=== PATIENT | male | born 1955 | race African-American/Black ===

== ENCOUNTER 2022-06-06 17:55 | Inpatient (IN) ==
[2022-06-06 19:23] LABS: Basophils % 0.6 % (0.0-0.8); Eosinophils # 0.3 10*3/uL (0.0-0.87); Eosinophils % 5.8 % (0.00-10.9); Hematocrit 38.6 VOL% (42.0-52.0); Hemoglobin 12.1 GM/DL (14.0-18.0); Immature Granulocytes % 0.4 %; Immature Granulocytes Absolute 0.02 #; Lymphocytes % 20.2 % (21.2-54.2); Mean Corpuscular HGB Conc 31.3 GM/DL (32-36); Mean Corpuscular Volume 80.9 FL (87-102); Monocytes # 0.5 10*3/uL (0.11-0.8); Monocytes % 9.7 % (1.7-12.7); Neutrophils % 63.3 % (38.7-73.9); Platelet Count 171 T/CUMM (130-400); Red Blood Count 4.77 MC/CUMM (3.8-5.5); Red Cell Distribution Width 19.3 % (9.3-17.3); White Blood Count 4.8 T/CUMM (4-12)
[2022-06-06 19:31] LABS: INR 1.2; PT Patient Result 12.9 SECS (10.1-12.1); Partial Thromboplastin Time 30.2 SECS (23.7-32.9)
[2022-06-06 19:42] LABS: Calcium 8.7 MG/DL (8.5-10.1); Potassium 3.3 MMOL/L (3.5-5.1)
[2022-06-06] MEDS ORDERED: ENOXAPARIN 100 MG/ML SYRINGE SUBCUT STA (20:37)
[2022-06-06] MEDS ORDERED: ACETAMINOPHEN 325 MG TABLET PO PRN (20:52)
[2022-06-06] MEDS ORDERED: POTASSIUM CHLORIDE RIDER 10 MEQ/100 ML PREMIX IV PRN (20:52)
[2022-06-06] MEDS ORDERED: POTASSIUM CHLORIDE 20 MEQ TABLET PO PRN (20:52)
[2022-06-06] MEDS ORDERED: ONDANSETRON 4 MG/2 ML VIAL IV PRN (20:52)
[2022-06-06] MEDS ORDERED: GLUCAGON 1 MG VIAL IM PRN (20:52)
[2022-06-06] MEDS ORDERED: DEXTROSE 10% 250 ML BAG IV PRN (20:52)
[2022-06-06] MEDS ORDERED: MAGNESIUM SULF RIDER 2 GM/50 ML PREMIX IV PRN (20:52)
[2022-06-06] MEDS ORDERED: MAGNESIUM SULF RIDER 4 GM/100 ML PREMIX IV PRN (20:52)
[2022-06-06] MEDS ORDERED: POTASSIUM CHLORIDE 20 MEQ TABLET PO STA (21:24)
[2022-06-06] MEDS ORDERED: hydrALAZINE 20 MG/1 ML VIAL IV PRN (21:24)
[2022-06-06] MEDS ORDERED: carvediloL 3.125 MG TABLET PO SCH (22:00)
[2022-06-06] MEDS: DOCUSATE SODIUM 100 MG CAPSULE PO SCH (22:45)
[2022-06-07 02:15] LABS: Basophils % 0.6 % (0.0-0.8); Eosinophils # 0.3 10*3/uL (0.0-0.87); Eosinophils % 5.7 % (0.00-10.9); Hematocrit 37.6 VOL% (42.0-52.0); Hemoglobin 11.9 GM/DL (14.0-18.0); Immature Granulocytes % 0.6 %; Immature Granulocytes Absolute 0.03 #; Lymphocytes # 0.9 10*3/uL (1.4-4.0); Mean Corpuscular HGB Conc 31.6 GM/DL (32-36); Mean Corpuscular Volume 80.7 FL (87-102); Monocytes # 0.5 10*3/uL (0.11-0.8); Monocytes % 9.2 % (1.7-12.7); Neutrophils % 65.9 % (38.7-73.9); Platelet Count 169 T/CUMM (130-400); Red Blood Count 4.66 MC/CUMM (3.8-5.5); Red Cell Distribution Width 19.7 % (9.3-17.3); White Blood Count 5.1 T/CUMM (4-12)
[2022-06-07 02:20] LABS: INR 1.5; PT Patient Result 15.7 SECS (10.1-12.1)
[2022-06-07 02:34] LABS: Ferritin 30.8 ng/mL (26-388); Risk Ratio 3.17; Thyroid Stimulating Hormone 3.73 uIU/ml (0.358-3.74); VLDL Cholesterol 11.8 MG/DL
[2022-06-07 03:20] LABS: Vitamin B12 1502 PG/ML (211-911)
[2022-06-07 03:32] LABS: Sedimentation Rate-Westergren 5 MM/HR (0-20)
[2022-06-07] MEDS ORDERED: MAGNESIUM SULF RIDER 2 GM/50 ML PREMIX IV ONE (08:15)
[2022-06-07] MEDS ORDERED: amLODIPine 5 MG TABLET PO SCH (09:00)
[2022-06-07] MEDS ORDERED: CHLORTHALIDONE 25 MG TABLET PO SCH (09:00)
[2022-06-07] MEDS ORDERED: ENOXAPARIN 80 MG/0.8 ML SYRINGE SUBCUT SCH (09:00)
[2022-06-07 09:04] LABS: Calcium 8.6 MG/DL (8.5-10.1); Osmolality,Calculated 290.8 MOS/KG (273-304); Potassium 3.7 MMOL/L (3.5-5.1)
[2022-06-07 09:33] LABS: Hemoglobin A1 (Alkaline) 98.1 % (96.5-98.5); Hemoglobin A2 (Alkaline) 1.9 % (1.5-3.5)
[2022-06-07] MEDS: FUROSEMIDE 40 MG/4 ML VIAL IV SCH ×2 (09:33→16:18)
[2022-06-07] MEDS: PANTOPRAZOLE 40 MG TABLET PO SCH (09:33)
[2022-06-07] MEDS: DOCUSATE SODIUM 100 MG CAPSULE PO SCH ×2 (09:33→20:17)
[2022-06-07] MEDS: SPIRONOLACTONE 25 MG TABLET PO SCH (12:29)
[2022-06-07] MEDS: carvediloL 6.25 MG TABLET PO SCH (20:17)
[2022-06-07] MEDS: APIXABAN 5 MG TABLET PO SCH (20:17)
[2022-06-07] MEDS: SACUBITRIL/VALSARTAN 49-51 MG TABLET PO SCH (20:17)
[2022-06-08 05:09] LABS: Basophils # 0.1 10*3/uL (0.0-0.2); Eosinophils # 0.5 10*3/uL (0.0-0.87); Hematocrit 40.4 VOL% (42.0-52.0); Hemoglobin 12.9 GM/DL (14.0-18.0); Immature Granulocytes % 0.4 %; Immature Granulocytes Absolute 0.02 #; Lymphocytes # 1.3 10*3/uL (1.4-4.0); Lymphocytes % 25.3 % (21.2-54.2); Mean Corpuscular HGB Conc 31.9 GM/DL (32-36); Mean Corpuscular Volume 79.4 FL (87-102); Monocytes # 0.7 10*3/uL (0.11-0.8); Neutrophils % 51.3 % (38.7-73.9); Platelet Count 168 T/CUMM (130-400); Red Blood Count 5.09 MC/CUMM (3.8-5.5); Red Cell Distribution Width 19.2 % (9.3-17.3)
[2022-06-08 05:14] LABS: INR 1.3; PT Patient Result 13.6 SECS (10.1-12.1)
[2022-06-08 05:19] LABS: Albumin 2.7 G/DL (3.4-5.0); Bilirubin,Total 3.8 MG/DL (0.20-1.00); Calcium 8.9 MG/DL (8.5-10.1); Osmolality,Calculated 278.5 MOS/KG (273-304); Total Protein 6.8 G/DL (6.4-8.2)
[2022-06-08 05:35] LABS: Hypochromia 1+; Microcytosis 1+; Ovalocytes Few; Target Cells Few
[2022-06-08 05:36] LABS: Platelet Estimate Adequate
[2022-06-08] MEDS ORDERED: POTASSIUM CHLORIDE 20 MEQ TABLET PO ONE ×2 (07:21→10:00)
[2022-06-08] MEDS ORDERED: SPIRONOLACTONE 25 MG TABLET PO SCH (09:00)
[2022-06-08] MEDS: DOCUSATE SODIUM 100 MG CAPSULE PO SCH ×2 (09:58→20:25)
[2022-06-08] MEDS: APIXABAN 5 MG TABLET PO SCH ×2 (09:58→20:24)
[2022-06-08] MEDS: SPIRONOLACTONE 25 MG TABLET PO SCH (09:58)
[2022-06-08] MEDS: carvediloL 6.25 MG TABLET PO SCH ×2 (09:58→20:24)
[2022-06-08] MEDS: PANTOPRAZOLE 40 MG TABLET PO SCH (09:58)
[2022-06-08] MEDS: SACUBITRIL/VALSARTAN 49-51 MG TABLET PO SCH ×2 (09:59→20:24)
[2022-06-08] MEDS: DAPAGLIFLOZIN 10 MG TABLET PO SCH (09:59)
[2022-06-09 05:09] LABS: Basophils % 0.8 % (0.0-0.8); Eosinophils # 0.5 10*3/uL (0.0-0.87); Eosinophils % 9.1 % (0.00-10.9); Hematocrit 37.7 VOL% (42.0-52.0); Hemoglobin 11.9 GM/DL (14.0-18.0); Lymphocytes # 1.4 10*3/uL (1.4-4.0); Lymphocytes % 27.2 % (21.2-54.2); Mean Corpuscular HGB Conc 31.6 GM/DL (32-36); Mean Corpuscular Volume 80.9 FL (87-102); Monocytes # 0.6 10*3/uL (0.11-0.8); Monocytes % 12.4 % (1.7-12.7); Neutrophils % 50.5 % (38.7-73.9); Platelet Count 169 T/CUMM (130-400); Red Blood Count 4.66 MC/CUMM (3.8-5.5); Red Cell Distribution Width 19.1 % (9.3-17.3); White Blood Count 5.1 T/CUMM (4-12)
[2022-06-09 05:27] LABS: Albumin 2.6 G/DL (3.4-5.0); Bilirubin,Total 3.2 MG/DL (0.20-1.00); Calcium 8.4 MG/DL (8.5-10.1); Osmolality,Calculated 281.4 MOS/KG (273-304); Potassium 3.7 MMOL/L (3.5-5.1); Total Protein 6.3 G/DL (6.4-8.2)
[2022-06-09] MEDS: carvediloL 6.25 MG TABLET PO SCH (09:35)
[2022-06-09] MEDS: APIXABAN 5 MG TABLET PO SCH (09:35)
[2022-06-09] MEDS: SPIRONOLACTONE 25 MG TABLET PO SCH (09:35)
[2022-06-09] MEDS: PANTOPRAZOLE 40 MG TABLET PO SCH (09:35)
[2022-06-09] MEDS: DAPAGLIFLOZIN 10 MG TABLET PO SCH (09:35)
[2022-06-09] MEDS: DOCUSATE SODIUM 100 MG CAPSULE PO SCH (09:35)
[2022-06-09] MEDS: SACUBITRIL/VALSARTAN 49-51 MG TABLET PO SCH (09:35)
[2022-06-09 12:55] VITALS: BP 113/80
== END 2022-06-09 15:17 | disposition home or self-care (01) | DRG 175 ==
LOC: N.ED 17:55 → SUATTDRO 20:52 → N.EDINP 20:52 → N.TELEN 06-07 01:31
PROVIDERS: ADMIT Hospitalist; ATTEND Family Medicine